=== PATIENT | male | born 1990 | race Caucasian/White ===

== ENCOUNTER 2017-11-16 14:23 | Emergency (ER) | END 2017-11-16 20:10 | disposition home or self-care (01) ==

== ENCOUNTER 2017-11-24 21:58 | Inpatient (IN) | END 2017-11-28 16:10 | disposition home health service (06) | DRG 392 ==

== ENCOUNTER 2017-12-13 01:07 | Inpatient (IN) | END 2017-12-31 18:45 | disposition home or self-care (01) | DRG 330 ==

== ENCOUNTER 2018-01-03 14:13 | Emergency (ER) | END 2018-01-03 16:06 | disposition home or self-care (01) ==

== ENCOUNTER 2019-01-14 12:14 | Emergency (ER) | payer OTHER ==
[~2019-01-14] VITALS: Ht 177.8 cm; Wt 148.2 kg
[~2019-01-14 12:14] MED LIST: ACET500C5 PO; ONDA4TAB13 PO; SIME80TA60 PO; TAMS-14 PO; TRAM50TA2 PO
[2019-01-14 12:23] VITALS: Ht 177.8 cm; Wt 148.2 kg
[2019-01-14] MEDS ORDERED: NAPR-985 PO (13:55)
--- NOTE | 2019-01-14 14:09 | ERD ---
ER Documentation Chief Complaint Chief Complaint PT with non radiating CP this morning for less niyah 1 minute. NO CP at [facility] HPI 28-year-old male presenting with chest pain. Patient states he was in the shower and he had a sharp stabbing pain in his chest that lasted about a minute. He states it resolved spontaneously and he is currently not feeling sensation. He denies any shortness of breath. He denies any coughing. Denies fever. Denies left arm pain. Patient is diabetic on pills. NKDA. Surgical history is abdominal abscess. Social history denies ROS All systems reviewed and are negative except as per history of present illness. Medications Home Meds Active Scripts Naproxen* (Naprosyn*) 500 Mg Tablet, 500 MG PO BID PRN for PAIN AND/OR INFLAMMATION, #30 TAB Prov:KADEN YADAV PA-C 01/14/19 Tamsulosin Hcl* (Flomax*) 0.4 Mg Cap.er.24h, 0.4 MG PO BID for 3 Days, #6 CAP Prov:ADRYAN HENSON MD 01/03/18 Simethicone* (Mylicon*) 80 Mg Tab, 80 MG PO TID PRN for DISTENSION/GAS/BLOATING for 28 Days, #30 TAB Prov:JAMMIE ESQUEDA MD 12/31/17 Ondansetron Hcl* (Zofran*) 4 Mg Tab, 4 MG PO Q4H PRN for NAUSEA AND OR VOMITING, #10 TAB Prov:JAMMIE ESQUEDA MD 12/31/17 Tramadol HCl (Tramadol HCl) 50 Mg Tablet, 50 MG PO Q6H PRN for pain for 7 Days, #30 TAB Prov:AJIT LOPEZ MD 11/28/17 Acetaminophen* (Tylophen*) 500 Mg Capsule, 1 CAP PO Q6H PRN for PAIN AND OR ELEVATED TEMP, #20 CAP Prov:YARON SOSA PA-C 11/16/17 Allergies Allergies: Coded Allergies: No Known Allergy (Unverified , 12/12/17) PMhx/Soc History of Surgery: Yes (TONSILLECTOMY, ABD) Anesthesia Reaction: No Hx Neurological Disorder: No Hx Respiratory Disorders: Yes (ASTHMA; BRONCHITIS) Hx Cardiac Disorders: No Hx Psychiatric Problems: No Hx Miscellaneous Medical Probl: No Hx Alcohol Use: Yes (OOC) Hx Substance Use: No Hx Tobacco Use: No Smoking Status: Never smoker FmHx Family History: No diabetes, No coronary disease, No other Physical Exam Vitals Vital Signs Date Temp Pulse Resp B/P (MAP) Pulse Ox O2 O2 Flow FiO2 Time Delivery Rate 01/14/19 99.0 86 14 157/87 100 12:23 (110) Physical Exam GENERAL: The patient is well-appearing, well-nourished, in no acute distress HEENT: Atraumatic. Conjunctivae are pink. Pupils equal, round, and reactive to light. There is no scleral icterus. Tympanic membranes clear bilaterally. Oropharynx clear. No nystagmus or photophobia. CHEST: Clear to auscultation bilaterally. There are no rales, wheezes or rhonchi. HEART: Regular rate and rhythm. No murmurs, clicks, rubs or gallops. . A Result Diagram: 01/14/19 1253 01/14/19 1253 Results 24 hrs Laboratory Tests Test 01/14/19 12:53 White Blood Count 8.1 10^3/ul Red Blood Count 5.38 10^6/ul Hemoglobin 15.0 g/dl Hematocrit 43.8 % Mean Corpuscular Volume 81.4 fl Mean Corpuscular Hemoglobin 27.9 pg Mean Corpuscular Hemoglobin Concent 34.2 g/dl Red Cell Distribution Width 12.4 % Platelet Count 260 10^3/UL Mean Platelet Volume 9.9 fl Immature Granulocytes % 0.500 % Neutrophils % 60.7 % Lymphocytes % 28.9 % Monocytes % 6.9 % Eosinophils % 2.0 % Basophils % 1.0 % Nucleated Red Blood Cells % 0.0 /100WBC Immature Granulocytes # 0.040 10^3/ul Neutrophils # 4.9 10^3/ul Lymphocytes # 2.3 10^3/ul Monocytes # 0.6 10^3/ul Eosinophils # 0.2 10^3/ul Basophils # 0.1 10^3/ul Nucleated Red Blood Cells # 0.0 10^3/ul Sodium Level 140 mmol/L Potassium Level 3.8 mmol/L Chloride Level 103 mmol/L Carbon Dioxide Level 27 mmol/L Anion Gap 10 Blood Urea Nitrogen 14 mg/dl Creatinine 0.95 mg/dl Est Glomerular Filtrat Rate mL/min > 60 mL/min Glucose Level 165 mg/dl Calcium Level 9.3 mg/dl Total Bilirubin 0.2 mg/dl Direct Bilirubin 0.00 mg/dl Indirect Bilirubin 0.2 mg/dl Aspartate Amino Transf (AST/SGOT) 44 IU/L Alanine Aminotransferase (ALT/SGPT) 56 IU/L Alkaline Phosphatase 111 IU/L Troponin I < 0.012 ng/ml Total Protein 7.7 g/dl Albumin 4.4 g/dl Globulin 3.30 g/dl Albumin/Globulin Ratio 1.33 Procedures/MDM DIAGNOSTIC IMAGING REPORT Patient: LYNN HICKMAN : 1990 Age: 28 Sex: M MR #: [id number] DOS: 01/14/19 1248 Ordering MD: KITTY YADAV PA-C Location: [facility] Room/Bed: PROCEDURE: XR Chest. CLINICAL INDICATION: chest pain TECHNIQUE: Single frontal view of the chest was obtained COMPARISON: CR CHEST 06/06/2015 FINDINGS: The heart and mediastinum are within normal limits. The lungs are clear. There is no pleural effusion or pneumothorax. RPTAT: AA IMPRESSION: No acute disease. EKG: Rate/Rhythm: Normal Sinus Rhythm QRS, ST, T-waves: No changes consistent w/ acute ischemia Impression: No evidence of ischemia or arrhythmia M: 28-year-old male presenting with chest pain. Patient's blood work and imaging is within normal limits. EKG is within normal limits. Patient is discharged with strict ER precautions and told to follow-up with primary care within 1 to 2 days for close evaluation. Patient is told symptoms change or worsen to return immediately to the ER. All questions answered at discharge Departure Diagnosis: Primary Impression: Chest pain Condition: Stable Patient Instructions: Chest Pain, Uncertain Cause Referrals: MARIA LUISA ZHAO (PCP) Additional Instructions: FOLLOW UP WITH YOUR PRIMARY CARE PHYSICIAN TOMORROW.Return to this facility if you are not improving as expected. KADEN YADAV PA-C January 14, 2019 14:09
[2019-01-14 14:28] VITALS: BP 132/82; PULSE 76; RESP 16
== END 2019-01-14 14:28 | disposition home or self-care (01) ==
LOC: FTE 12:14
DX: R07.9 Chest pain, unspecified (principal); J45.909 Unspecified asthma, uncomplicated
CPT/HCPCS: 36415; 71045; 80053; 84484; 85025; 93005; Z7502